=== PATIENT | male | born 1970 | race African-American/Black ===

== ENCOUNTER 2019-08-27 06:18 | Inpatient (IN) | payer MEDICAID, MEDICARE ==
[~2019-08-27] VITALS: Ht 185.4 cm; Wt 72.6 kg
[2019-08-27] MEDS ORDERED: MORPHINE SULFATE 4 MG/ML CPJ (NOT FOR IM USE) IV STA (06:57)
[2019-08-27] MEDS ORDERED: SODIUM CHLORIDE 0.9% 1,000 ML IV ONE (06:57)
[2019-08-27] MEDS ORDERED: ONDANSETRON HCL 4MG/2ML INJ IV STA (06:57)
[2019-08-27 07:20] LABS: BASOPHILS % 1.1 % (0.0-2.0); EOSINOPHILS % 0.2 % (0.0-5.0); HEMATOCRIT. 49.6 % (42.0-52.0); HEMOGLOBIN. 16.1 g/dL (14.0-18.0); LYMPHOCYTES % 7.5 % (20.0-50.0); MEAN CORPUSCULAR HEMOGLOBIN 28.7 pg (28.0-32.0); MEAN CORPUSCULAR VOLUME 88.5 fL (80.0-94.0); MEAN PLATELET VOLUME 10.1 fl (7.4-10.4); MONOCYTES % 3.5 % (2.0-8.0); NEUTROPHILS % 87.7 % (40.0-76.0); PLATELET 272 x1000/uL (130-400); RED BLOOD CELL COUNT 5.61 mill/uL (4.7-6.1); RED CELL DISTRIBUTION WIDTH 13.5 % (11.6-14.6)
[2019-08-27 07:27] LABS: PROTHROMBIN TIME 9.8 sec (9.6-11.0)
[2019-08-27 07:28] LABS: CHLORIDE 108 mEq/L (98-107)
[2019-08-27 08:13] LABS: CLARITY URINE CLEAR (CLEAR); COLOR URINE YELLOW (YELLOW); KETONES URINE NEGATIVE (NEGATIVE); LEUKOCYTE ESTERASE URINE NEGATIVE (NEGATIVE); NITRITE URINE NEGATIVE (NEGATIVE); OCCULT BLOOD URINE NEGATIVE (NEGATIVE); PROTEIN URINE NEGATIVE (NEGATIVE); SPECIFIC GRAVITY URINE 1.028 (1.005-1.030)
[2019-08-27] MEDS ORDERED: MORPHINE SULFATE 2 MG/ML CPJ (NOT FOR IM USE) IV ONE (09:00)
[2019-08-27] MEDS ORDERED: HYDRALAZINE 20MG/ML VIAL IV PRN (11:30)
[2019-08-27] MEDS ORDERED: MORPHINE SULFATE 2 MG/ML CPJ (NOT FOR IM USE) IV PRN (11:30)
[2019-08-27] MEDS ORDERED: ACETAMINOPHEN 650MG SUPP PR PRN (11:30)
[2019-08-27] MEDS ORDERED: ONDANSETRON HCL 4MG/2ML INJ IV PRN (11:30)
[2019-08-27] MEDS: DEXT 5%/0.45% NACL 1000ML 1,000 ML IV SCH (11:35)
[2019-08-27] MEDS: PANTOPRAZOLE SODIUM 40 MG/VIAL IV SCH (11:36)
[2019-08-27] MEDS ORDERED: NORMAL SALINE 0.9% 10 ML SYR ONE (12:43)
[2019-08-27] MEDS ORDERED: METRONIDAZOLE 500 MG PREMIX 0 ML IV ONE (12:43)
[2019-08-27] MEDS ORDERED: LEVOFLOXACIN 500MG PREMIX 0 ML IV ONE (12:43)
[2019-08-27] MEDS ORDERED: BACITRACIN 50,000 UNITS/VIAL ONE (12:43)
[2019-08-27] MEDS ORDERED: BUPIVACAINE HCL 0.5% (5MG/ML) 50ML ONE (12:44)
[2019-08-27 23:38] VITALS: BP 154/87
[2019-08-28] MEDS: DEXT 5%/0.45% NACL 1000ML 1,000 ML IV SCH ×2 (01:23→14:07)
[2019-08-28 04:37] VITALS: BP 134/93
[2019-08-28 07:22] LABS: CHLORIDE 110 mEq/L (98-107)
[2019-08-28 07:35] LABS: BASOPHILS % 0.5 % (0.0-2.0); EOSINOPHILS % 1.3 % (0.0-5.0); HEMOGLOBIN. 13.8 g/dL (14.0-18.0); MEAN CORPUSCULAR HEMOGLOBIN 28.8 pg (28.0-32.0); MEAN CORPUSCULAR VOLUME 87.5 fL (80.0-94.0); MEAN PLATELET VOLUME 10.3 fl (7.4-10.4); MONOCYTES % 7.2 % (2.0-8.0); PLATELET 212 x1000/uL (130-400); RED BLOOD CELL COUNT 4.79 mill/uL (4.7-6.1); RED CELL DISTRIBUTION WIDTH 13.4 % (11.6-14.6)
[2019-08-28 08:15] VITALS: BP 153/90
[2019-08-28] MEDS: PANTOPRAZOLE SODIUM 40 MG/VIAL IV SCH (09:29)
[2019-08-28 12:15] VITALS: BP 144/88
[2019-08-28 16:10] VITALS: BP 135/82
[2019-08-28 20:54] VITALS: BP 149/71
[2019-08-29 00:50] VITALS: BP 130/61
[2019-08-29] MEDS: DEXT 5%/0.45% NACL 1000ML 1,000 ML IV SCH ×2 (03:50→16:54)
[2019-08-29 04:00] VITALS: BP 122/67
[2019-08-29 07:38] LABS: BASOPHILS % 0.9 % (0.0-2.0); EOSINOPHILS % 1.5 % (0.0-5.0); HEMOGLOBIN. 14.7 g/dL (14.0-18.0); LYMPHOCYTES % 22.4 % (20.0-50.0); MEAN CORPUSCULAR HEMOGLOBIN 29.2 pg (28.0-32.0); NEUTROPHILS % 67.2 % (40.0-76.0); PLATELET 199 x1000/uL (130-400); RED BLOOD CELL COUNT 5.05 mill/uL (4.7-6.1); RED CELL DISTRIBUTION WIDTH 13.4 % (11.6-14.6)
[2019-08-29 07:54] LABS: CHLORIDE 108 mEq/L (98-107)
[2019-08-29 08:06] LABS: LDL CHOLESTEROL 94 mg/dL (5-100)
[2019-08-29 08:08] LABS: HDL CHOLESTEROL 57 mg/dL (40-59)
[2019-08-29 08:10] VITALS: BP 130/79
[2019-08-29] MEDS: PANTOPRAZOLE SODIUM 40 MG/VIAL IV SCH (09:46)
[2019-08-29 12:08] VITALS: BP 144/74
[2019-08-29 16:06] VITALS: BP 137/85
[2019-08-29] MEDS ORDERED: POTASSIUM CHLORIDE 20MEQ TABLET SR PO NR (17:00)
[2019-08-29 19:32] VITALS: BP 120/75
[2019-08-29] MEDS ORDERED: FAMOTIDINE 20MG/2ML VIAL IV SCH (21:00)
== END 2019-08-29 20:05 | disposition home or self-care (01) | DRG 247 ==
LOC: ER 06:43 → EDBD 06:43 → 6WST 08:42 → EDBEDREQ 08:49 → ENRESERV 20:13
PROVIDERS: ADMIT Internal Medicine; ATTEND Hospitalist
PROC: 0D9670Z Drainage of Stomach with Drainage Device, Via Natural or Artificial Opening (ICD-10-PCS; principal; 2019-08-28)
DX: K56.50 Intestinal adhesions [bands], unspecified as to partial versus complete obstruction (principal); E86.0 Dehydration; I10 Essential (primary) hypertension; F43.10 Post-traumatic stress disorder, unspecified; Z79.899 Other long term (current) drug therapy
CPT/HCPCS: 36415; 71045; 74018; 74176; 80048; 80053; 80061; 81003; 85025; 93005; 93306; 93970; 99285; C9113; J1956; J2270; J2405; J3490; J7030